=== PATIENT | female | born 1960 | race Caucasian/White ===

== ENCOUNTER → 2017-08-05 | Outpatient (CLI) | payer OTHER ==
[~2017-08-05] MED LIST: EPIP0.3I IM; PRED20 PO; WAL-10TA2 PO
== END ==
LOC: HLAB 17:40
PROVIDERS: ATTEND Emergency Medicine
DX: N39.0 Urinary tract infection, site not specified (principal)
CPT/HCPCS: 87086

== ENCOUNTER 2017-08-13 06:51 | Emergency (ER) | payer OTHER ==
[~2017-08-13] VITALS: Ht 157.5 cm; Wt 78.0 kg
[2017-08-13 06:55] VITALS: BP 187/86; PULSE 95; RESP 16; TEMP 97.9; O2SAT 99
[2017-08-13] MEDS ORDERED: SODIUM CHLOR 0.9% 1000 ML INJ 1,000 ML IV SCH (07:24)
[2017-08-13] MEDS ORDERED: ONDANSETRON HCL 4 MG/2 ML VIAL IVP ONE (07:30)
[2017-08-13] MEDS ORDERED: MORPHINE SULFATE 4 MG/ML INJ IV PUSH ONE (07:30)
[2017-08-13] MEDS ORDERED: KETOROLAC TROMETHAMINE 30 MG/ML (IVP) VIAL IVP ONE (07:30)
[2017-08-13] MEDS ORDERED: SODIUM CHLORIDE 0.9% FLUSH 10 ML FLUSH IV FLUSH PRN (07:30)
--- NOTE | 2017-08-13 07:31 | PD ---
HPI Chief Complaint: Complaint Time Seen by Provider: 07:12 Travel History International Travel<30 days: No Contact w/Intl Traveler<30days: No Traveled to known affect area: No History of Present Illness HPI The patient is a 57-year-old female who presents to the emergency department for lower abdominal pain. The patient was seen in urgent care on Tuesday and was diagnosed with a urinary tract infection. The patient was placed on Bactrim and Pyridium. The patient came to [facility] to have a urine culture, states her symptoms improved on Tuesday. However, her symptoms returned yesterday. The pain is located in the suprapubic region, radiates to the back, is associated with dysuria and dark-colored urine, possibly hematuria. The patient does have a history of irregular menstrual cycles, was on Mirena, via the physicians. However, the Mirena was removed in January 2017. Since then she's had some irregular spotting. She does have a history of bladder sling in the past. The pain is located lower aspect of the abdomen, radiates to the back, is associated with mild burning. She denies any history nephrolithiasis. She does complain of generalized malaise and not feeling well, denies any nausea, vomiting, or diarrhea. Symptoms are moderate. [facility] Past Medical History Medical History: Denies Significant Hx Immunizations Current: Yes Tubal Ligation: Yes Past Surgical History Other Surgery: Yes (BLAdDER MESH ) Social History Alcohol Use: No Tobacco Use: No Substance Use: No Allergies-Medications (Allergen,Severity, Reaction): Coded Allergies: No Known Allergies (Unverified Adverse Reaction, Unknown, 08/13/17) Uncoded Allergies: unknown (Allergy, Severe, Anaphylaxis, 03/20/16) Reported Meds & Prescriptions Reported Meds & Active Scripts Active No Active Prescriptions or Reported Medications Review of Systems Except as stated in HPI: all other systems reviewed are Neg General / Constitutional: No: Fever, Chills Cardiovascular: No: Chest Pain or Discomfort Respiratory: No: Shortness of Breath Gastrointestinal: No: Nausea, Vomiting, Diarrhea Genitourinary: Positive: Dysuria, Hematuria, Pelvic Pain, No: Urgency, Frequency, Discharge, Vaginal Bleeding Musculoskeletal: Positive: Weakness, No: Myalgias Skin: No Rash Physical Exam Narrative GENERAL: Awake, alert, pleasant 57 year-old female who appears her stated age and is in no acute respiratory distress. SKIN: Focused skin assessment warm/dry. HEAD: Atraumatic. Normocephalic. EYES: Pupils equal and round. No scleral icterus. No injection or drainage. ENT: No nasal bleeding or discharge. Mucous membranes pink and moist. NECK: Trachea midline. No JVD. CARDIOVASCULAR: Regular rate and rhythm. No murmur appreciated. RESPIRATORY: No accessory muscle use. Clear to auscultation. Breath sounds equal bilaterally. GASTROINTESTINAL: Abdomen soft, mild suprapubic tenderness. No guarding or rigidity. Back: No CVA tenderness. Pelvic: The exam was performed in the presence of a female nurse. External examination reveals what appears to be bladder prolapse. Speculum examination, cervix was hard to distinguish. There was some white to yellow discharge in the vaginal vault with erythema noted in the posterior cuff. MUSCULOSKELETAL: No obvious deformities. No clubbing. No cyanosis. No edema. NEUROLOGICAL: Awake and alert. No obvious cranial nerve deficits. Motor grossly within normal limits. Normal speech. PSYCHIATRIC: Appropriate mood and affect; insight and judgment normal. Data Data Last Documented VS Vital Signs Date Time Temp Pulse Resp B/P (MAP) Pulse Ox O2 Delivery O2 Flow Rate FiO2 08/13/17 06:55 97.9 95 16 187/86 (119) 99 Room Air Orders Orders Complete Blood Count With Diff (08/13/17 07:24) Comprehensive Metabolic Panel (08/13/17 07:24) Lipase (08/13/17 07:24) Urinalysis - C+S If Indicated (08/13/17 07:24) Ct Abd/Pel W/O Iv Contrast (08/13/17 07:24) Iv Access Insert/Monitor (08/13/17:24) Ecg Monitoring (08/13/17:24) Oximetry (08/13/17:24) Morphine Inj (Morphine Inj) (08/13/17 07:30) Ondansetron Inj (Zofran Inj) (08/13/17 07:30) Sodium Chlor 0.9% 1000 Ml Inj (Ns 1000 M (08/13/17 07:24) Sodium Chloride 0.9% Flush (Ns Flush) (08/13/17 07:30) Ketorolac Inj (Toradol Inj) (08/13/17 07:30) Ed Urine Pregnancytest Poc (08/13/17 07:24) Urine Culture (08/13/17 07:30) Gc And Chlamydia Pcr (08/13/17 08:06) Wet Prep Profile (08/13/17 08:06) Us Pelvis Comp W Transvaginal (08/13/17 ) Labs Laboratory Tests Test 08/13/17 07:25 08/13/17 07:30 08/13/17 08:10 White Blood Count 7.7 TH/MM3 Red Blood Count 4.86 MIL/MM3 Hemoglobin 14.0 GM/DL Hematocrit 40.7 % Mean Corpuscular Volume 83.6 FL Mean Corpuscular Hemoglobin 28.8 PG Mean Corpuscular Hemoglobin Concent 34.5 % Red Cell Distribution Width 14.0 % Platelet Count 351 TH/MM3 Mean Platelet Volume 7.6 FL Neutrophils (%) (Auto) 65.2 % Lymphocytes (%) (Auto) 27.5 % Monocytes (%) (Auto) 4.9 % Eosinophils (%) (Auto) 1.5 % Basophils (%) (Auto) 0.9 % Neutrophils # (Auto) 5.0 TH/MM3 Lymphocytes # (Auto) 2.1 TH/MM3 Monocytes # (Auto) 0.4 TH/MM3 Eosinophils # (Auto) 0.1 TH/MM3 Basophils # (Auto) 0.1 TH/MM3 CBC Comment DIFF FINAL Differential Comment Blood Urea Nitrogen 13 MG/DL Creatinine 0.96 MG/DL Random Glucose 198 MG/DL Total Protein 8.7 GM/DL Albumin 4.2 GM/DL Calcium Level 9.8 MG/DL Alkaline Phosphatase 85 U/L Aspartate Amino Transf (AST/SGOT) 34 U/L Alanine Aminotransferase (ALT/SGPT) 38 U/L Total Bilirubin 0.4 MG/DL Sodium Level 136 MEQ/L Potassium Level 4.3 MEQ/L Chloride Level 101 MEQ/L Carbon Dioxide Level 27.4 MEQ/L Anion Gap 8 MEQ/L Estimat Glomerular Filtration Rate 60 ML/MIN Lipase 350 U/L Urine Color YELLOW Urine Turbidity CLEAR Urine pH 5.5 Urine Specific [place] 1.014 Urine Protein TRACE mg/dL Urine Glucose (UA) 300 mg/dL Urine Ketones TRACE mg/dL Urine Occult Blood LARGE Urine Nitrite NEG Urine Bilirubin NEG Urine Urobilinogen LESS THAN 2.0 MG/DL Urine Leukocyte Esterase SMALL Urine RBC 18 /hpf Urine WBC 11 /hpf Urine Squamous Epithelial Cells <1 /hpf Urine Hyaline Casts 1 /lpf Urine Mucus FEW /lpf Microscopic Urinalysis Comment CULTURE INDICATED Clue Cells (Wet Prep) NONE SEEN Vaginal Trichomonas (Wet Prep) NONE SEEN Vaginal Yeast (Wet Prep) NONE SEEN MDM Medical Decision Making Medical Screen Exam Complete: Yes Emergency Medical Condition: Yes Medical Record Reviewed: Yes Interpretation(s) Laboratory Tests Test 08/13/17 07:25 08/13/17 07:30 08/13/17 08:10 White Blood Count 7.7 TH/MM3 Red Blood Count 4.86 MIL/MM3 Hemoglobin 14.0 GM/DL Hematocrit 40.7 % Mean Corpuscular Volume 83.6 FL Mean Corpuscular Hemoglobin 28.8 PG Mean Corpuscular Hemoglobin Concent 34.5 % Red Cell Distribution Width 14.0 % Platelet Count 351 TH/MM3 Mean Platelet Volume 7.6 FL Neutrophils (%) (Auto) 65.2 % Lymphocytes (%) (Auto) 27.5 % Monocytes (%) (Auto) 4.9 % Eosinophils (%) (Auto) 1.5 % Basophils (%) (Auto) 0.9 % Neutrophils # (Auto) 5.0 TH/MM3 Lymphocytes # (Auto) 2.1 TH/MM3 Monocytes # (Auto) 0.4 TH/MM3 Eosinophils # (Auto) 0.1 TH/MM3 Basophils # (Auto) 0.1 TH/MM3 CBC Comment DIFF FINAL Differential Comment Blood Urea Nitrogen 13 MG/DL Creatinine 0.96 MG/DL Random Glucose 198 MG/DL Total Protein 8.7 GM/DL Albumin 4.2 GM/DL Calcium Level 9.8 MG/DL Alkaline Phosphatase 85 U/L Aspartate Amino Transf (AST/SGOT) 34 U/L Alanine Aminotransferase (ALT/SGPT) 38 U/L Total Bilirubin 0.4 MG/DL Sodium Level 136 MEQ/L Potassium Level 4.3 MEQ/L Chloride Level 101 MEQ/L Carbon Dioxide Level 27.4 MEQ/L Anion Gap 8 MEQ/L Estimat Glomerular Filtration Rate 60 ML/MIN Lipase 350 U/L Urine Color YELLOW Urine Turbidity CLEAR Urine pH 5.5 Urine Specific [place] 1.014 Urine Protein TRACE mg/dL Urine Glucose (UA) 300 mg/dL Urine Ketones TRACE mg/dL Urine Occult Blood LARGE Urine Nitrite NEG Urine Bilirubin NEG Urine Urobilinogen LESS THAN 2.0 MG/DL Urine Leukocyte Esterase SMALL Urine RBC 18 /hpf Urine WBC 11 /hpf Urine Squamous Epithelial Cells <1 /hpf Urine Hyaline Casts 1 /lpf Urine Mucus FEW /lpf Microscopic Urinalysis Comment CULTURE INDICATED Clue Cells (Wet Prep) NONE SEEN Vaginal Trichomonas (Wet Prep) NONE SEEN Vaginal Yeast (Wet Prep) NONE SEEN Last Impressions Abdomen/Pelvis CT 08/13/17 0724 Signed Impressions: Service Date/Time: Sunday, August 13, 2017 07:58 - CONCLUSION: 1. No evidence of renal stones, hydronephrosis or abnormal dilation of the ureters. No abnormalities are seen within the bladder. 2. 1 cm exophytic right renal lesion which is not clearly a simple cyst. This could represent a small renal cell carcinoma and further evaluation is needed for characterization. 3. Large solid appearing partially calcified mass identified within the expected region of the left adnexa. However, this mass also appears in continuity with the adjacent lobulated uterus. Differential diagnosis includes pedunculated calcified uterine fibroid versus a solid ovarian neoplasm. Given the patient's age and concern for neoplasm recommend further evaluation of this lesion with either a contrast enhanced MR or ultrasound.. Tarah Steele MD Pelvis Ultrasound 08/13/17 0000 Signed Impressions: Service Date/Time: Sunday, August 13, 2017 08:58 - CONCLUSION: Multiple uterine fibroids. The concerning mass identified on CT demonstrates imaging features suggestive of a pedunculated partially calcified fibroid. Given the characteristic posterior shadowing and lack of internal vascularity a left ovarian neoplasm is considered less likely.. Tarah Steele MD Differential Diagnosis Differential diagnosis includes UTI, pyelonephritis, nephrolithiasis, PID, cervicitis, bladder cancer, diverticulitis, , ectopic . Narrative Course IV was established, labs are drawn and sent, and the patient was placed on cardiac telemetry monitoring and continuous pulse oximetry monitoring. UA was obtained, bedside urine test was performed, was negative. A pelvic exam was completed. Noncontrast CT the abdomen and pelvis was performed. CT reveals no evidence of renal stones, hydronephrosis, or abnormal dilation of the uterus. There is a 1 cm exophytic right renal lesion which is not clearly a simple cyst, could represent a small renal cell carcinoma needs further evaluation. The patient also has a large solid appearing partially calcified mass identified within the expected region of the left adnexa, could be pedunculated calcified uterine fibroid versus a solid ovarian neoplasm. Therefore, ultrasound of the pelvis was obtained. Ultrasound reveals what appears to be multiple uterine fibroids. The patient will need outpatient follow-up with oncology in regards to possibly symptomatic uterine fibroids versus continuing UTI symptoms. She will also need follow-up with urology for kidney mass. The patient will be provided a copy of her CT results and ultrasound results at discharge. Diagnosis Primary Impression: Abdominal pain Qualified Codes: R10.30 - Lower abdominal pain, unspecified Additional Impression: Cystitis Patient Instructions: General Instructions Additional Instructions: Follow-up with a primary physician. You may need follow-up with urology and gynecology regards to the right kidney mass and large uterine fibroids. Please provide a patient a copy of her CT results, ultrasound results, and lab results at discharge. Medications as directed. Med/Other Pt SpecificInfo: Prescription(s) given Scripts Ciprofloxacin (Cipro) 500 Mg Tab 500 MG PO BID for Infection for 7 Days, #14 TAB 0 Refills Prov: Ravi Flores MD 08/13/17 Disposition: 01 DISCHARGE HOME Condition: Stable Ravi Flores MD Aug 13, 2017 07:31
[2017-08-13 07:41] LABS: BASOPHIL # 0.1 TH/MM3 (0-0.2); BASOPHIL % 0.9 % (0.0-2.0); EOSINOPHIL # 0.1 TH/MM3 (0-0.4); EOSINOPHIL % 1.5 % (0.0-4.0); HEMATOCRIT 40.7 % (35.0-46.0); LYMPH % 27.5 % (9.0-44.0); LYMPHOCYTE # 2.1 TH/MM3 (1.0-4.8); MEAN CELL VOLUME 83.6 FL (80.0-100.0); MEAN CORPUSCULAR HEMOGLOBIN 28.8 PG (27.0-34.0); MEAN CORPUSCULAR HGB CONC 34.5 % (32.0-36.0); MEAN PLATELET VOLUME 7.6 FL (7.0-11.0); MONO % 4.9 % (0.0-8.0); MONOCYTE # 0.4 TH/MM3 (0-0.9); NEUT % 65.2 % (16.0-70.0); PLATELET COUNT 351 TH/MM3 (150-450); RED BLOOD COUNT 4.86 MIL/MM3 (4.00-5.30); WHITE BLOOD COUNT 7.7 TH/MM3 (4.0-11.0)
[2017-08-13 07:47] LABS: BILIRUBIN, URINE NEG (NEG); BLOOD, URINE LARGE (NEG); GLUCOSE,URINE 300 mg/dL (NEG); HYALINE CAST, URINE 1 /lpf (RARE); KETONE, URINE TRACE mg/dL (NEG); MUCUS URINE FEW /lpf (OCC); NITRITE,URINE NEG (NEG); PH, URINE 5.5 (5.0-8.5); SQUAMOUS EPITHELIAL CELL URINE <1 /hpf (0-5); URINE COLOR YELLOW (YELLW/STRAW); URINE LEUKOCYTE ESTERASE SMALL (NEG)
[2017-08-13 07:58] LABS: ALT (GPT) 38 U/L (10-53)
[2017-08-13 08:01] LABS: ALKALINE PHOSPHATASE 85 U/L (45-117); TOTAL BILIRUBIN ADULT 0.4 MG/DL (0.2-1.0); TOTAL PROTEIN 8.7 GM/DL (6.4-8.2)
[2017-08-13 08:08] LABS: ALBUMIN 4.2 GM/DL (3.4-5.0); AST (GOT) 34 U/L (15-37); BICARBONATE 27.4 MEQ/L (21.0-32.0); BLOOD UREA NITROGEN 13 MG/DL (7-18); CALCIUM 9.8 MG/DL (8.5-10.1); CHLORIDE 101 MEQ/L (98-107); CREATININE 0.96 MG/DL (0.50-1.00); GLOMERULAR FILTRATION RATE 60 ML/MIN (>89); GLUCOSE,RANDOM 198 MG/DL (74-106); SODIUM (NA) 136 MEQ/L (136-145)
--- NOTE | 2017-08-13 08:21 | RADRPT ---
EXAM DATE/TIME: 08/13/2017 07:58 [facility] COMPARISON: No previous studies available for comparison. INDICATIONS : Suprapubic pain, bilateral flank pain, hematuria for two days. ORAL CONTRAST: No oral contrast ingested. RADIATION DOSE: 8.50 CTDIvol (mGy) MEDICAL HISTORY : None SURGICAL HISTORY : Tubal ligation. bladder mesh ENCOUNTER: Initial ACUITY: 2 days PAIN SCALE: 8/10 LOCATION: suprapubic TECHNIQUE: Volumetric scanning of the abdomen and pelvis was performed. Using automated exposure control and ad justment of the mA and/or kV according to patient size, radiation dose was kept as low as reasonably achievable to obtain optimal diagnostic quality images. DICOM format image data is available electro nically for review and comparison. FINDINGS: LOWER LUNGS: The visualized lower lungs are clear. LIVER: Homogeneous low density without lesion. There is no dilation of the biliary tree. No calcified gall stones. SPLEEN: Normal size without lesion. PANCREAS: Within normal limits. KIDNEYS: There is a small exophytic mass involving the lower right kidney measuring approximately 1 cm in size and 22 Hounsfield units. This is not clearly a benign cyst. The kidneys are otherwise normal in size , shape and attenuation. No evidence of hydronephrosis or stones. The ureters are normal in caliber t hroughout their course. ADRENAL GLANDS: Within normal limits. VASCULAR: There is no aortic aneurysm. BOWEL/MESENTERY: The stomach, small bowel, and colon demonstrate no acute abnormality. Scattered diverticuli are ident ified in the sigmoid colon. No adjacent inflammatory change. There is no free intraperitoneal air or fluid. The appendix is normal. ABDOMINAL WALL: Within normal limits. RETROPERITONEUM: There is no lymphadenopathy. BLADDER: No wall thickening or mass. REPRODUCTIVE: The uterus appears enlarged, lobulated in contour. There is a exophytic rounded mass with associated calcifications identified within the expected region of the left adnexa. This lesion measures 4.9 x 3 .7 x 3.9 cm. This also demonstrates new deep with the adjacent myometrium. Differential diagnosis inc ludes exophytic partially calcified pedunculated fibroid versus a solid left ovarian neoplasm. INGUINAL: There is no lymphadenopathy or hernia. MUSCULOSKELETAL: There is sclerosis of the SI joints bilaterally. No lytic or blastic lesion. CONCLUSION: 1. No evidence of renal stones, hydronephrosis or abnormal dilation of the ureters. No abnormalities are seen within the bladder. 2. 1 cm exophytic right renal lesion which is not clearly a simple cyst. This could represent a small renal cell carcinoma and further evaluation is needed for characterization. 3. Large solid appearing partially calcified mass identified within the expected region of the left a dnexa. However, this mass also appears in continuity with the adjacent lobulated uterus. Differential diagnosis includes pedunculated calcified uterine fibroid versus a solid ovarian neoplasm. Given the patient's age and concern for neoplasm recommend further evaluation of this lesion with either a con trast enhanced MR or ultrasound.. Tarah Steele MD on August 13, 2017 at 8:10 Board Certified Radiologist. This report was verified electronically.
[2017-08-13 10:00] VITALS: BP 165/78; PULSE 88; RESP 17; O2SAT 99
--- NOTE | 2017-08-13 10:11 | RADRPT ---
EXAM DATE/TIME: 08/13/2017 08:58 [facility] COMPARISON: No previous studies available for comparison. INDICATIONS : Pelvic pain. MEDICAL HISTORY : Pelvic pain. SURGICAL HISTORY : Tubal ligation. Bladder mesh. ENCOUNTER: Initial ACUITY: 1 week PAIN SCORE: 8/10 LOCATION: Bilateral pelvis MEASUREMENTS: UTERUS: 7.0 x 4.3 x 3.5 cm ENDOMETRIAL STRIPE: 3 mm RIGHT OVARY: Non visualized LEFT OVARY: Non visualized FINDINGS: UTERUS: The myometrium is diffusely heterogeneous with multiple lobulated areas of decreased echogenicity con sistent with multiple fibroids. There is a large partially exophytic fibroid involving the left uteri ne fundus 6.7 x 6.7 x 4.8 cm. Immediately contiguous with this lesion is a rounded hypoechoic avascul ar appearing lesion with areas of increased echogenicity and posterior shadowing which corresponds wi th the lesion identified within the region of the left adnexa. This lesion measures 3.2 x 3.8 x 3.8 c m. This is seen to be immediately contiguous with the exophytic fibroid within the left uterine fundu s. Given the characteristic shadowing and lack of internal vascularity within this lesion this is fel t to favor a pedunculated fibroid. RIGHT OVARY: Not visualized. LEFT OVARY: Not visualized. MISCELLANEOUS: No free fluid. CONCLUSION: Multiple uterine fibroids. The concerning mass identified on CT demonstrates imaging features suggest ana of a pedunculated partially calcified fibroid. Given the characteristic posterior shadowing and l ack of internal vascularity a left ovarian neoplasm is considered less likely.. Tarah Steele MD on August 13, 2017 at 10:06 Board Certified Radiologist. This report was verified electronically.
[2017-08-13] MEDS ORDERED: CIPR-9 PO (10:20)
== END 2017-08-13 10:55 | disposition home or self-care (01) ==
LOC: NEPE 06:51
DX: R10.30 Lower abdominal pain, unspecified (principal); N30.90 Cystitis, unspecified without hematuria
CPT/HCPCS: 74176; 76830; 76856; 80053; 81001; 83690; 84703; 85025; 87086; 87210; 87491; 87591; 96374; 96375; 99285; J1885; J2270; J2405; J7030

== ENCOUNTER → 2017-12-15 | Outpatient (CLI) | payer OTHER ==
[~2017-12-15] MED LIST changes: +CIPR-9 PO; -EPIP0.3I IM; -PRED20 PO; -WAL-10TA2 PO
[2017-12-15 15:15] LABS: AUTOMATED NEUTROPHIL # 3.9 TH/MM3 (1.8-7.7); BASOPHIL # 0.1 TH/MM3 (0-0.2); BASOPHIL % 1.2 % (0.0-2.0); EOSINOPHIL # 0.1 TH/MM3 (0-0.4); EOSINOPHIL % 1.8 % (0.0-4.0); HEMATOCRIT 41.8 % (35.0-46.0); HEMOGLOBIN 14.1 GM/DL (11.6-15.3); LYMPHOCYTE # 1.9 TH/MM3 (1.0-4.8); MEAN CELL VOLUME 82.8 FL (80.0-100.0); MEAN CORPUSCULAR HEMOGLOBIN 27.9 PG (27.0-34.0); MEAN CORPUSCULAR HGB CONC 33.7 % (32.0-36.0); MONO % 5.8 % (0.0-8.0); MONOCYTE # 0.4 TH/MM3 (0-0.9); NEUT % 61.2 % (16.0-70.0); PLATELET COUNT 345 TH/MM3 (150-450); RED BLOOD COUNT 5.05 MIL/MM3 (4.00-5.30); RED CELL DISTRIBUTION WIDTH 13.6 % (11.6-17.2); WHITE BLOOD COUNT 6.3 TH/MM3 (4.0-11.0)
[2017-12-15 15:24] LABS: ALBUMIN 4.1 GM/DL (3.4-5.0); ALT (GPT) 44 U/L (10-53); AST (GOT) 24 U/L (15-37); BLOOD UREA NITROGEN 15 MG/DL (7-18); CALCIUM 9.9 MG/DL (8.5-10.1); CHLORIDE 100 MEQ/L (98-107); CREATININE 0.75 MG/DL (0.50-1.00); GLOMERULAR FILTRATION RATE 80 ML/MIN (>89); GLUCOSE,FASTING 101 MG/DL (74-99); SODIUM (NA) 139 MEQ/L (136-145)
[2017-12-15 15:26] LABS: ALKALINE PHOSPHATASE 82 U/L (45-117); TOTAL BILIRUBIN ADULT 0.5 MG/DL (0.2-1.0); TOTAL PROTEIN 8.4 GM/DL (6.4-8.2)
--- NOTE | 2017-12-15 15:35 | EKG ---
Date Performed: 12/15/2017 Time Performed: 14:56:11 PTAGE: 57 years EKG: Sinus rhythm LOW QRS VOLTAGE IN PRECORDIAL LEADS NONSPECIFIC T-WAVE ABNORMALITY BORDERLINE ECG PREVIOUS TRACING : 10/05/2014 16.22 No significant change from previous tracing noted. DOCTOR: Rahul Trejo Interpretating Date/Time 12/15/2017 15:34:48
--- NOTE | 2017-12-15 15:40 | RADRPT ---
EXAM DATE: 12/15/2017 3:28 PM EDT AGE/SEX: 57 years / Female INDICATIONS: Evaluate for pneumonia, pneumothorax, or communicable disease. Pre op D&C. CLINICAL DATA: This is the patient's initial encounter. Patient reports that signs and symptoms have been present for 1 day and indicates a pain score of 0/10. MEDICAL/SURGICAL HISTORY: None. None. [place] [facility] [place]. . FINDINGS: PA and lateral views of the chest demonstrate the lungs to be symmetrically aerated without evidence of mass, infiltrate or effusion. The cardiomediastinal contours are unremarkable. Osseous structures are intact. CONCLUSION: No acute cardiopulmonary findings identified. Stable compared to previous. Electronically signed by: Percy Hurst MD 12/15/2017 3:39 PM EDT
[2017-12-15 15:52] LABS: PROTHROMBIN TIME - PATIENT 10.2 SEC (9.8-11.6)
== END ==
LOC: CPRE 14:34
PROVIDERS: ATTEND Obstetrics & Gynecology Gynecologic Oncology
DX: Z01.810 Encounter for preprocedural cardiovascular examination (principal); R19.06 Epigastric swelling, mass or lump; Z01.812 Encounter for preprocedural laboratory examination; Z01.818 Encounter for other preprocedural examination; R94.31 Abnormal electrocardiogram [ECG] [EKG]
CPT/HCPCS: 36415; 71046; 80053; 85025; 85610; 85730; 93005